=== PATIENT | female | born 1940 | race Caucasian/White ===

== ENCOUNTER 2022-08-18 11:32 | Emergency (ER) | payer MEDICARE ==
[~2022-08-18] VITALS: Ht 162.6 cm; Wt 81.7 kg
[2022-08-18] MEDS ORDERED: ELIQUIS5 MG PO (16:08)
[2022-08-18] MEDS ORDERED: ATORVASTATIN CA20 MG PO (16:08)
[2022-08-18] MEDS ORDERED: METFORMIN HCL500 M1 PO (16:09)
[2022-08-18] MEDS ORDERED: LOSARTAN POTASS25 MG PO (16:09)
[2022-08-18] MEDS ORDERED: METOPROLOL TART25 MG PO (16:09)
[2022-08-18] MEDS ORDERED: ESTRING1 EACH VAGINAL (16:11)
[2022-08-18] MEDS ORDERED: LASIX20 MG PO (16:11)
[2022-08-18] MEDS ORDERED: OMEGA 3 1,0001 EACH PO (16:12)
[2022-08-18] MEDS ORDERED: ANIMAL CHEWS1 EACH PO (16:12)
[2022-08-18] MEDS ORDERED: K-TAB ER20 MEQ PO (16:13)
--- NOTE | 2022-08-19 14:29 | EKG ---
[facility] [address] [facility] [place] [address] Signed Sinus bradycardia Nonspecific ST abnormality Abnormal ECG No previous ECGs available Confirmed by SHYLA BURKS MD ([id number]) on 08/19/2022 2:29:14 PM Electronically Signed By: SHYLA BURKS MD 08/19/22 1429 PATIENT NAME: JANY BEASLEY Electrocardiogram DATE OF : 42 PHYSICIAN: SHYLA BURKS MD REPORT #: [id number] REPORT IS CONFIDENTIAL AND NOT TO BE RELEASED WITHOUT AUTHORIZATION
== END 2022-08-18 17:25 | disposition short-term general hospital (02) ==
LOC: ED 11:32
DX: I16.9 Hypertensive crisis, unspecified (principal); I61.5 Nontraumatic intracerebral hemorrhage, intraventricular; N39.0 Urinary tract infection, site not specified
CPT/HCPCS: 36415; 70450; 71045; 80053; 81001; 84484; 85025; 85610; 85730; 87077; 87088; 87186; 93005; 93010; 96365; 96375; 99285-25; G0480; J0696; J7060; J7168; U0003